=== PATIENT | female | born 1960 | race Caucasian/White ===

== ENCOUNTER → 2016-11-27 | Outpatient (CLI) | payer BC ==
[2014-05-18 11:33] VITALS: BP 128/81
--- NOTE | 2016-11-28 16:35 | MG ---
HISTORY: SCREENING Comparison: October 04, 2014 and October 15, 2015 FINDINGS: Bilateral CC and MLO projections of the right and left breast were obtained. Scattered fibroglandul ar tissue is seen to be present without significant interval change. No suspicious architectural di stortion, mass or clustered microcalcifications can be observed to suggest malignancy. No skin thic kening or nipple retraction is appreciated. No pathological lymphadenopathy can be identified. Obed ign-appearing calcifications are noted within the right and left breast. IMPRESSION: NO RADIOGRAPHIC EVIDENCE OF MALIGNANCY. ACR CATEGORY 2 - benign findings. FOLLOW-UP EXAM 1 YEAR. Diagnostic CAD was utilized and reviewed. * 0 (ZERO) - ASSESSMENT INCOMPLETE; ADDITIONAL IMAGING IS NEEDED. * 1/1 (ONE) - NEGATIVE. * 2/II (TWO) - BENIGN FINDINGS. * 3/III (THREE) - PROBABLY BENIGN FINDING; SHORT INTERVAL FOLLOW-UP SUGGESTED. * 4/IV (FOUR) - SUSPICIOUS ABNORMALITY; BIOPSY SHOULD BE CONSIDERED. * 5/V (FIVE) - HIGHLY SUSPICIOUS OF MALIGNANCY; BIOPSY SHOULD BE PERFORMED. A NEGATIVE X-RAY REPORT SHOULD NOT DELAY BIOPSY IF A DOMINANT OR CLINICALLY SUSPICIOUS MASS IS PRESENT; 4 TO 8 PERCENT OF CANCERS ARE NOT IDENTIFIED BY X-RAY. A NEG ATIVE REPORT MAY REINFORCE THE CLINICAL IMPRESSION. ADENOSIS AND DENSE BREASTS MAY OBSCURE AN UNDER LYING NEOPLASM. Reported By:
== END ==
LOC: RAD 14:52
PROVIDERS: ATTEND Internal Medicine
DX: Z12.31 Encounter for screening mammogram for malignant neoplasm of breast (principal)
CPT/HCPCS: 77067

== ENCOUNTER 2022-06-20 10:02 | Inpatient (IN) ==
[2022-06-20 10:22] LABS: BASOPHILS # (AUTO) 0.1 X10^3/uL (0.0-0.1); BASOPHILS % (AUTO) 0.6 % (0.2-1.0); EOSINOPHILS # (AUTO) 0.1 x10^3/uL (0.0-0.2); EOSINOPHILS % (AUTO) 0.3 % (0.9-2.9); HEMATOCRIT 43.2 % (36.0-47.0); HEMOGLOBIN 15.2 g/dL (12.0-16.0); LYMPHOCYTES % (AUTO) 16.1 % (21.0-51.0); MEAN CORPUSCULAR HEMOGLOBIN 29.7 pg (27.0-34.0); MEAN CORPUSCULAR HGB CONC 35.1 g/dL (33.0-35.0); MEAN CORPUSCULAR VOLUME 84.5 fL (80.0-100.0); MEAN PLATELET VOLUME 7.7 fL (7.4-11.0); MONOCYTES # (AUTO) 1.3 x10^3/uL (0.3-0.8); MONOCYTES % (AUTO) 6.7 % (0.0-13.0); NEUTROPHILS # (AUTO) 14.3 x10^3/uL (2.2-4.8); NEUTROPHILS % (AUTO) 76.3 % (42.0-75.0); RED BLOOD COUNT 5.11 X10^6/uL (3.5-5.4); RED CELL DISTRIBUTION WIDTH 16.8 % (11.6-16.5); WHITE BLOOD COUNT 18.7 X10^3/uL (3.6-10.0)
[2022-06-20 10:41] LABS: ALANINE AMINOTRANSFERASE 37 Units/L (12-78); ALBUMIN 3.7 g/dL (3.4-5.0); ALKALINE PHOSPHATASE 183 Units/L (46-116); ASPARTATE AMINO TRANSFERASE 27 Units/L (15-37); BLOOD UREA NITROGEN 25 mg/dL (7-18); CALCIUM 9.3 mg/dL (8.5-10.1); CHLORIDE 87 mmol/L (98-107); COR NA(FOR HYPERGLY) 133 mmol/L (136-145); CREATININE 1.88 mg/dL (0.55-1.02); SODIUM 130 mmol/L (136-145); TOTAL PROTEIN 8.7 g/dL (6.4-8.2); eGFR NON BLACK RACES 29 (>60)
--- NOTE | 2022-06-20 10:43 | DR.DIZZY ---
HPI Time seen Time Seen by Provider: 06/20/22 10:40 PCP Primary Care Physician: Nadira Sims Complaint Chief Complaint Doctor Comments: PATIENT HAS BEEN LOOSING HER BALANCE FOR THE PAST FEW DAYS AND HAS ABRASION ON LEFT LOWER LEG AND L FOREARM . Chief Complaint:: Dizziness - Pt fell this morning in her bathroom and once yesterday. Pt states dizziness started about 6 days ago. She has recently been started on Ozempic and believes that may be why she's dizzy. COVID-19 Coronavirus risk:travel/contact w/high risk person: No Has patient experienced Coronavirus symptoms: No Source History Provided: Patient Mode of Arrival Mode of Arrival: Ambulatory Timing Onset of Chief Complaint: 06/14/22 Context Stroke Symptoms: None PMH PMH Past Medical History: Yes Past Medical History: Diabetes, Hypertension and Renal Disease Past Medical History Comment: Breast CA, Acid Reflux Past Surgical History: Yes Surgical History: , Cholecystectomy and Hysterectomy Past Surgical History Comment: Lumpectomy (Left side), Ortho foot Family History History of Family Medical Conditions: Yes Family Medical History: Diabetes Mellitus and [place] Social History Does patient currently use any type of tobacco product: No Have you used tobacco products in the last 12 months: No Type of Tobacco Use: None Alcohol Use: None Do you use any recreational Drugs:: No Lives With: Alone Lives Where: Home Travel Risk Coronavirus risk:travel/contact w/high risk person: No Has patient experienced Coronavirus symptoms: No Infectious screening Have you traveled outside the country in the last 6 months?: No Isolation: Standard ROS Review of Systems Constitutional: Weakness, Fatigue and Other (REQUENT FALLS,HYPOKALEMIA) Eyes: Other (FREQUENT FALLS) ENTM: No Symptoms Reported Respiratoy: No Symptoms Reported Cardiovascular: No Symptoms Reported Gastrointestinal/Abdominal: No Symptoms Reported Genitourinary: No Symptoms Reported Neurological: No Symptoms Reported Musculoskeletal: Left, Forearm and Leg Integumentary: Other (BRUISE LEFT FOREARM AND LEFT LEG) Hematologic/Lymphatic: No Symptoms Reported Endocrine: No Symptoms Reported Psychiatric: No Symptoms Reported PE Vital Signs Vitals: Temperature 98.7 F Pulse Rate 104 Respiratory Rate 22 Blood Pressure [Right Arm] 115/64 Blood Pressure [Left Arm] 132/69 Blood Pressure 124/75 O2 Sat by Pulse Oximetry 100 General Limitations: No Limitations General Appearance: Alert and In Distress (MILD DISTRESS) Head Head Exam: Normal Inspection and Atraumatic Eyes Eye exam: Normal Appearance, PERRL and EOMI ENT ENT Exam: Normal Exam, Normal Oropharynx and Normal External Ear Exam Neck Neck Exam: Normal Inspection, Full ROM and Trachea Midline Chest Chest Inspection: Normal Inspection and Symmetric Chest Wall Rise Respiratory Respiratory Exam: Normal Lung Sounds Bilat Respiratory Exam: Bilateral: Clear to Auscultation Cardiovascular Cardiovascular Exam: Regular Rate and Normal Rhythm Abdominal Exam Abdominal Exam: Normal Inspection, Normal Bowel Sounds and Soft Rectal Rectal Exam: Deferred Extremeties Extremities Exam: Other (ABRASIONS TO LEFT FOREAARM AND LEFT LOWER LEG) Neurologic Neurological Exam: Alert, Oriented X3 and CN II-XII Intact Patient Oriented To: Person, Place and Time Speech: Fluid Speech Cranial Nerve Exam: EOM Function (II, III, IV, ): Normal MDM Differential Diagnosis Differential Diagnosis: Anemia, Electrolyte disorder, Peripheral Vertigo and Other (CHF) COURSE Treatment Treatment: PATINT REMAINED STABLE DURING ER EVALUATION. WAS FOUND TO HAVE K OF 2.2 AND WAS STARTED ON ONE 10MEQ K-RIDER IN ER . THE REST OF THE LAB EVALUATION SHOWED A WBC OF 18.7. THE URINE WAS NEGATIVER ND I DID NOT SEE AN OBVIOUS INFILTRATE ON THE CHEST XRAY. PATIENT WILL BE GIVEN ROCEPHINE 1GRAM IN ER FOR LEUCOCYTOSIS AND DR JACKSON CALLED AND HE STATED TO ADMIT THE PATIENT TO THE HOSPITAL AND TREAT HYPOKALEMIA AND LEUCOCYTOSIS. PATIENT WAS TOLD ABOUT THE INTENT TO ADMIT AND WAS AGREABLE TO THE ADMISSION. ROR Labs Reviewed Laboratory Results Reviewed?: Yes Result Diagrams: 06/20/22 10:11 06/20/22 10:11 Laboratory: WBC 18.7 X10^3/uL (3.6-10.0) H 06/20/22 10:11 RBC 5.11 X10^6/uL (3.5-5.4) 06/20/22 10:11 Hgb 15.2 g/dL (12.0-16.0) 06/20/22 10:11 Hct 43.2 % (36.0-47.0) 06/20/22 10:11 MCV 84.5 fL (80.0-100.0) 06/20/22 10:11 MCH 29.7 pg (27.0-34.0) 06/20/22 10:11 MCHC 35.1 g/dL (33.0-35.0) H 06/20/22 10:11 RDW 16.8 % (11.6-16.5) H 06/20/22 10:11 Plt Count 515 X10^3/uL (150.0-450.0) H 06/20/22 10:11 MPV 7.7 fL (7.4-11.0) 06/20/22 10:11 Neut % (Auto) 76.3 % (42.0-75.0) H 06/20/22 10:11 Lymph % (Auto) 16.1 % (21.0-51.0) L 06/20/22 10:11 [place] % (Auto) 6.7 % (0.0-13.0) 06/20/22 10:11 Eos % (Auto) 0.3 % (0.9-2.9) L 06/20/22 10:11 Baso % (Auto) 0.6 % (0.2-1.0) 06/20/22 10:11 Neut # (Auto) 14.3 x10^3/uL (2.2-4.8) H 06/20/22 10:11 Lymph # (Auto) 3.0 X10^3/uL (1.3-2.9) H 06/20/22 10:11 [place] # (Auto) 1.3 x10^3/uL (0.3-0.8) H 06/20/22 10:11 Eos # (Auto) 0.1 x10^3/uL (0.0-0.2) 06/20/22 10:11 Baso # (Auto) 0.1 X10^3/uL (0.0-0.1) 06/20/22 10:11 Absolute Nucleated RBC 0.1 /100WBC 06/20/22 10:11 Sodium 130 mmol/L (136-145) L 06/20/22 10:11 Corrected Sodium 133 mmol/L (136-145) L 06/20/22 10:11 Potassium 2.2 mmol/L (3.5-5.1) L* 06/20/22 10:11 Chloride 87 mmol/L (98-107) L 06/20/22 10:11 Carbon Dioxide 27.0 mmol/L (21-32) 10/14/22 10:11 BUN 25 mg/dL (7-18) H 06/20/22 10:11 Creatinine 1.88 mg/dL (0.55-1.02) H 06/20/22 10:11 Est GFR (MDRD) Af Amer 35 (>60) L 06/20/22 10:11 Est GFR (MDRD) Non-Af 29 (>60) L 06/20/22 10:11 Glucose 240 mg/dL (65-99) H 06/20/22 10:11 Calcium 9.3 mg/dL (8.5-10.1) 06/20/22 10:11 Corrected Calcium TNP 06/20/22 10:11 Total Bilirubin 0.60 mg/dL (0.2-1.0) 06/20/22 10:11 AST 27 Units/L (15-37) 06/20/22 10:11 ALT 37 Units/L (12-78) 06/20/22 10:11 Alkaline Phosphatase 183 Units/L (46-116) H 06/20/22 10:11 Troponin I High Sens 16.4 ng/L (4.0-60.0) 06/20/22 10:11 B-Natriuretic Peptide 99.4 pg/mL (0-79) H 06/20/22 10:11 Total Protein 8.7 g/dL (6.4-8.2) H 06/20/22 10:11 Albumin 3.7 g/dL (3.4-5.0) 06/20/22 10:11 Globulin 5.0 g/dL (2.5-4.5) H 06/20/22 10:11 Albumin/Globulin Ratio 0.7 Ratio (1.1-2.1) L 06/20/22 10:11 Specimen Type Clean catch urine 06/20/22 10:55 Urine Color Straw (YELLOW) 06/20/22 10:55 Urine Appearance Clear (CLEAR) 06/20/22 10:55 Urine pH 6.0 (5.0 - 8.0) 06/20/22 10:55 Ur Specific [place] 1.020 (1.000-1.030) 06/20/22 10:55 Urine Protein 3+ (NEGATIVE) 06/20/22 10:55 Urine Glucose (UA) Negative (NEGATIVE) 06/20/22 10:55 Urine Ketones Negative (NEGATIVE) 06/20/22 10:55 Urine Blood 1+ (NEGATIVE) 06/20/22 10:55 Urine Nitrite Negative (NEGATIVE) 06/20/22 10:55 Urine Bilirubin Negative (NEGATIVE) 06/20/22 10:55 Urine Urobilinogen Normal (NORMAL) 06/20/22 10:55 Ur Leukocyte Esterase Negative (NEGATIVE) 06/20/22 10:55 Urine RBC 0-2 /HPF (0-3) 06/20/22 10:55 Urine WBC 0-2 /HPF (0-5) 06/20/22 10:55 Ur Squamous Epith Cells Few /HPF (NEGATIVE) 06/20/22 10:55 Urine Bacteria Trace /HPF (NEGATIVE) 06/20/22 10:55 Hyaline Casts Moderate /LPF (NEGATIVE) 06/20/22 10:55 Urine Mucus Few /HPF (NEGATIVE) 06/20/22 10:55 Ur Culture Indicated? No/not indicated 06/20/22 10:55 XRAY XRAY Interpreted by: Self (NO INFILTRATE NOTED) EKG Rhythm: NSR Opioid Opioid Risk Tool Age (Adolfo box if 16-45): No History of Preadolescent Sexual Abuse: No Total: 0 Total Score Risk Category: Low Risk Copyright: Cb BERNARD predicting aberrant behaviors Discharge Plan Diagnosis Discharge Problem: Hypokalemia, Leucocytosis, Hyperglycemia Discharge Plan Patient Disposition: 09 ADMITTED INPATIENT Condition: Stable Prescriptions: No Action cyclobenzaprine 10 mg tablet 1 tab PO BID furosemide 40 mg tablet 1 tab PO QDAY atorvastatin 20 mg tablet 1 tab PO QPM fluorouracil 5 % cream 40 applic TOPICAL QDAY pantoprazole 40 mg tablet,delayed release (DR/EC) 1 tab PO QDAY venlafaxine 37.5 mg tablet 1 tab PO BID gabapentin 300 mg capsule 1 cap PO QPM triamterene-hydrochlorothiazid 75-50 mg tablet 1 tab PO QDAY metoprolol succinate 25 mg tablet extended release 24 hr 1 tab PO QDAY letrozole 2.5 mg tablet 1 tab PO QDAY Ozempic 0.25 mg or 0.5 mg(2 mg/1.5 mL) pen injector 0.25 mg SUBCUT QWEEK Health Concerns: Post Hospitalization: new medications and changes needed to prevent readmission or further decline. Pt educated and given instructions on all concerns. Plan of Treatment: Continue with present treatment and follow up plan. Pt is to keep follow up appointment as instructed and take medications as ordered. Orders to Discharge Patient Discharge Orders: Transfer (Routine); Ordered 06/20/22 Ordered By: Juwan Marinelli Follow ups/Referrals Follow ups/Referrals: NADIRA SIMS [Primary Care Provider] - 3 days Instructions Stand Alone Forms: Precautions for COVID19, [place], Patient Portal, So cial Distancing
[2022-06-20] MEDS ORDERED: K-RIDER 10 MEQ/NS 100 ML 10 MEQ/100 ML BAG IV ONE ×2 (11:05→11:12)
[2022-06-20 11:09] LABS: BILIRUBIN,URINE NEGATIVE (NEGATIVE); BLOOD/HEMOGLOBIN,URINE 1+ (NEGATIVE); GLUCOSE, URINE NEGATIVE (NEGATIVE); KETONES,URINE NEGATIVE (NEGATIVE); LEUKOCYTE ESTERASE ,URINE NEGATIVE (NEGATIVE); NITRITES,URINE NEGATIVE (NEGATIVE); PROTEIN,URINE 3+ (NEGATIVE); UROBILINOGEN,URINE NORMAL (NORMAL)
[2022-06-20] MEDS ORDERED: NS 1,000 ML IV 1,000 ML ONE (11:12)
[2022-06-20] MEDS: NS 1,000 ML IV 1,000 ML IV SCH (11:29)
[2022-06-20 11:55] LABS: APPEARANCE,URINE CLEAR (CLEAR); COLOR,URINE STRAW (YELLOW)
[2022-06-20 11:56] LABS: BACTERIA,URINE TRACE /HPF (NEGATIVE); HYALINE CASTS, URINE MODERATE /LPF (NEGATIVE); RBC,URINE 0-2 /HPF (0-3); SQUAMOUS EPITHELIAL CELL,UR FEW /HPF (NEGATIVE)
[2022-06-20] MEDS ORDERED: ROCEPHIN VIAL 1 GRAM IV ONE (12:55)
[2022-06-20] MEDS ORDERED: ROCEPHIN 1 GRAM IV PREMIX 1 G/50 ML IV.SOLN. IV SCH (13:13)
[2022-06-20] MEDS ORDERED: ROCEPHIN VIAL 1 GRAM ONE (13:26)
[2022-06-20] MEDS ORDERED: ROCEPHIN VIAL 1 GRAM 1 G in NS 100 ML IV 100 ML IV SCH (13:30)
[2022-06-20] MEDS ORDERED: KLOR-CON PO PRN ×2 (13:40→15:35)
[2022-06-20] MEDS ORDERED: MICRO K EXTEN CAP 10 MEQ PO PRN ×2 (13:40→15:35)
[2022-06-20] MEDS ORDERED: POTASSIUM CHL 40 MEQ/NS 0.45% 500 ML IV PRN ×2 (13:40→15:35)
[2022-06-20] MEDS ORDERED: POTASSIUM CHL 60 MEQ/NS 0.45% 500 ML IV PRN ×2 (13:40→15:35)
[2022-06-20] MEDS ORDERED: K-DUR TAB 20 MEQ PO PRN (13:40)
[2022-06-20] MEDS ORDERED: POTASSIUM CHLORIDE LIQ 20 MEQ UDC PO PRN ×2 (13:40→15:35)
[2022-06-20] MEDS ORDERED: K-RIDER 10 MEQ/NS 100 ML 10 MEQ/100 ML BAG IV PRN ×2 (13:40→15:35)
[2022-06-20 14:53] VITALS: BMI 26.6
[2022-06-20] MEDS ORDERED: MAXZIDE 75/50 MG PO SCH (15:06)
[2022-06-20] MEDS ORDERED: PATIENT'S HOME MEDICATION (Semaglutide [Ozempic] 0.25 mg or 0.5 mg(2 mg/1.5 mL) pen inject SUBCUT SCH (15:06)
[2022-06-20] MEDS ORDERED: MAGNESIUM SULFATE 1 GRAM/100 mL PREMIX 1 G/100 ML BAG IV PRN (15:35)
--- NOTE | 2022-06-20 16:00 | RAD ---
HISTORYDizziness, fallSTUDYChest AP [id number]/02/2022FINDINGSHear t size is normal. Ca are normal. Lung pittman are clear. No pleural effusions are identified. Bony thorax is unremarkable.IMPRESSIONNo significant abnormality identifiedElectronically signed by: LUCIO VILLELA (Jun 20, 2022 15:58:19)
[2022-06-20] MEDS: PROTONIX TAB 40 MG PO SCH (17:27)
[2022-06-20] MEDS: TOPROL XL PO SCH (17:27)
[2022-06-20] MEDS: MAXZIDE 37.5/25 MG PO SCH (17:27)
[2022-06-20] MEDS: LIPITOR TAB 20 MG PO SCH (21:35)
[2022-06-20] MEDS: EFFEXOR TAB 37.5 MG (BID DOSING) PO SCH (21:35)
[2022-06-20] MEDS: FLEXERIL TAB 10 MG PO SCH (21:35)
[2022-06-20] MEDS: NEURONTIN CAP 300 MG PO SCH (21:35)
[2022-06-20] MEDS: ZOSYN VIAL 3.375 GRAMS 3.375 G in NS 100 ML IV 100 ML IV SCH (21:36)
[2022-06-21] MEDS: K-DUR TAB 20 MEQ PO PRN ×3 (01:50→14:51)
[2022-06-21] MEDS: NS 1,000 ML IV 1,000 ML IV SCH ×2 (01:58→17:47)
[2022-06-21] MEDS: ZOSYN VIAL 3.375 GRAMS 3.375 G in NS 100 ML IV 100 ML IV SCH ×3 (05:03→21:16)
[2022-06-21 05:59] LABS: BASOPHILS # (AUTO) 0.1 X10^3/uL (0.0-0.1); BASOPHILS % (AUTO) 0.6 % (0.2-1.0); EOSINOPHILS # (AUTO) 0.1 x10^3/uL (0.0-0.2); EOSINOPHILS % (AUTO) 0.7 % (0.9-2.9); HEMATOCRIT 37.3 % (36.0-47.0); HEMOGLOBIN 13.1 g/dL (12.0-16.0); LYMPHOCYTES # (AUTO) 3.1 X10^3/uL (1.3-2.9); LYMPHOCYTES % (AUTO) 22.4 % (21.0-51.0); MEAN CORPUSCULAR HEMOGLOBIN 29.8 pg (27.0-34.0); MEAN CORPUSCULAR HGB CONC 35.2 g/dL (33.0-35.0); MEAN CORPUSCULAR VOLUME 84.6 fL (80.0-100.0); MEAN PLATELET VOLUME 7.3 fL (7.4-11.0); MONOCYTES % (AUTO) 7.5 % (0.0-13.0); NEUTROPHILS # (AUTO) 9.5 x10^3/uL (2.2-4.8); NEUTROPHILS % (AUTO) 68.8 % (42.0-75.0); RED CELL DISTRIBUTION WIDTH 16.6 % (11.6-16.5); WHITE BLOOD COUNT 13.8 X10^3/uL (3.6-10.0)
[2022-06-21 06:07] LABS: ALANINE AMINOTRANSFERASE 28 Units/L (12-78); ALKALINE PHOSPHATASE 153 Units/L (46-116); ASPARTATE AMINO TRANSFERASE 22 Units/L (15-37); BLOOD UREA NITROGEN 18 mg/dL (7-18); CALCIUM 8.6 mg/dL (8.5-10.1); CARBON DIOXIDE 29.3 mmol/L (21-32); CHLORIDE 95 mmol/L (98-107); COR CA(FOR HYPOALB) 9.4 mg/dL (8.5-10.1); COR NA(FOR HYPERGLY) 135 mmol/L (136-145); CREATININE 1.06 mg/dL (0.55-1.02); SODIUM 134 mmol/L (136-145); TOTAL PROTEIN 7.3 g/dL (6.4-8.2); eGFR NON BLACK RACES 56 (>60)
[2022-06-21] MEDS: FLEXERIL TAB 10 MG PO SCH ×2 (08:15→20:44)
[2022-06-21] MEDS: EFFEXOR TAB 37.5 MG (BID DOSING) PO SCH ×2 (08:16→20:44)
[2022-06-21] MEDS: TOPROL XL PO SCH (08:16)
[2022-06-21] MEDS: PROTONIX TAB 40 MG PO SCH (08:16)
[2022-06-21] MEDS: MAXZIDE 37.5/25 MG PO SCH (08:16)
--- NOTE | 2022-06-21 11:36 | DR.H&P ---
H&P - History & Physical for Day of: H&P Date: 06/20/22 - Chief Complaint Chief Complaint: DIZZINESS, WEAKNESS, FREQUENT FALLS, LEFT ARM WOUND, LEFT LOWER LEG WOUND - History of Present Illness History of Present Illness: IS A 62 YEAR OLD PATIENT OF OURS. SHE PRESENTED TO THE ER WITH COMPLAINTS OF DIZZINESS AND FREQUENT FALLS. PATIENT REPORTED FALLING IN HER BATHROOM ON THE DAY OF ADMISSION AND ALSO ONE TIME THE PREVIOUS DAY. SHE REPORTS THAT DIZZINESS STARTED APPROXIMATELY ONE WEEK AGO. SHE WAS RECENTLY STARTED ON OZEMPIC AND BELIEVES THAT IS WHAT MAY BE CAUSING THE DIZZINESS. ON EXAMINATION, PATIENT WAS NOTED TO HAVE A LARGE SKIN TEAR TO THE LEFT ARM WELL THE LEFT KNEE. BLOODY DRAINAGE WAS NOTED TO THE ARM. ERYTHEMA NOTED TO ARM AND LEFT LOWER LEG. HER PMH INCLUDES: HTN, GERD, COLOECTOMY, ARTHRITIS, CHOLECYSTECTOMY, , AND HYSTERECTOMY. ON ARRIVAL TO THE HOSPITAL, VITALS WERE: 98.3-828-29-100%-129/70. LABS WERE OBTAINED. WBC 18.7, RBC 5.11, HGB 15.2, HCT 43.2, PLT COUNT 515, SODIUM 130, POTASSIUM 2.2, CHLORIDE 87, BUN 25, CREATININE 1.88, GLUCOSE 240, CALCIUM 9.3, AST 27, ALT 37, ALK PHOS 183, BNP 99.4, TOTAL PROTEIN 8.7, ALBUMIN 3.7. A URINALYSIS WAS OBTAINED AND WAS UNREMARKABLE. CHEST XRAY OBTAINED AND REVEALED: NO SIGNIFICANT ABNORMALITY IDENTIFIED. EKG REVEALED: SINUS TACHYCARDIA WITH HR 106. IN THE ER, SHE WAS GIVEN A 10MEQ K-RIDER AND ROCEPHIN 1G IV X 1. SHE WAS ADMITTED TO THE HOSPITAL FOR FURTHER EVALUATION AND TREATMENT OF CELLULITIS OF LEFT LOWER LEG AND LEFT ARM, LEUKOCYTOSIS, DEHYDRATION, HYPONATREMIA, AND HYPOKALEMIA. SHE WAS STARTED ON NORMAL SALINE AT 80 ML/HR, ZOSYN 3.375G IV TID, THE POTASSIUM AND MAGNESIUM PROTOCOLS. HER HOME MEDICATIONS OF LIPITOR, FLEXERIL, NEURONTIN, METOPROLOL, PROTONIX, AND VENLAFAXINE WERE RESUMED. WE WILL CONSULT FOR POSSIBLE DEBRIDEMENT OF LEFT ARM WOUND. OTHERWISE, WE WILL FOLLOW-UP WITH AM LABS AND CONTINUE TO MONITOR. TIME SPENT ON CLINICAL ASSESSMENT, REVIWING LABS AND IMAGING, DECISION MAKING, AND DOCUMENTATION GREATER THAN 75 MINUTES. - Past Medical History Past Medical History: Hypertension, Diabetes, Renal Disease - Past Surgical History Surgical History: Cholecystectomy, , Hysterectomy - Family History Family Medical History: Diabetes Mellitus, [place] - Social History Does patient currently use any type of tobacco product: No Have you used tobacco products in the last 12 months: No Type of Tobacco Use: None Does any household member use tobacco: No Alcohol Use: None Drug Use: None - Medications Home Medications: droperidol [From Inapsine] Allergy (Verified 02/06/22 15:51) sulfamethoxazole [From Bactrim] Allergy (Verified 02/06/22 15:51) trimethoprim [From Bactrim] Allergy (Verified 02/06/22 15:51) CONTINUE taking the following medications atorvastatin 20 mg tablet 1 tab PO QPM 06/20/22 [History] cyclobenzaprine 10 mg tablet 1 tab PO BID 06/20/22 [History] fluorouracil 5 % topical cream 40 applic topical QDAY 06/20/22 [History] furosemide 40 mg tablet 1 tab PO QDAY 06/20/22 [History] gabapentin 300 mg capsule 1 cap PO QPM 06/20/22 [History] letrozole 2.5 mg tablet 1 tab PO QDAY 06/20/22 [History] metoprolol succinate 25 mg tablet,extended release 24 hr 1 tab PO QDAY 06/20/22 [History] pantoprazole 40 mg tablet,delayed release 1 tab PO QDAY 06/20/22 [History] semaglutide 0.25 mg or 0.5 mg (2 mg/1.5 mL) subcutaneous pen injector (Ozempic) 0.25 mg subcut QWEEK 06/20/22 [History] triamterene 75 mg-hydrochlorothiazide 50 mg tablet 1 tab PO QDAY 06/20/22 [History] venlafaxine 37.5 mg tablet 1 tab PO BID 06/20/22 [History] - Review of Systems Constitutional: Weakness Eyes: No Symptoms Reported ENT: No Symptoms Reported Respiratory: No Symptoms Reported Cardiovascular: [place] Gastrointestinal: No Symptoms Reported Genitourinary: No Symptoms Reported Musculoskeletal: No Symptoms Reported Skin: Wound (LEFT ARM SKIN TEAR, LEFT KNEE SKIN TEAR ) Neurological: Weakness - Physical Exam Vital Signs: Temperature 98.1 F Pulse Rate [Left] 92 Pulse Rate 104 Respiratory Rate 18 Blood Pressure [Right Arm] 126/68 Blood Pressure [Left Arm] 132/69 Blood Pressure 124/75 O2 Sat by Pulse Oximetry 97 Oriented: Normal Eyes: Normal Ear: Normal Nose: Normal Throat: Normal Respiratory: Diminished Throughout Cardiovascular: Tachycardia : Normal Auscultation: Bowel Sounds: Normal Palpation: Normal Tenderness: Normal Skin: Red, Tender, Wound (LARGE SKIN TEAR TO LEFT ARM, SKIN TEAR TO LEFT KNEE ) Musculoskeletal: Normal Psychiatric: Normal Mood Description: Calm Affect: Normal Speech Pattern: Clear - Assessment/Plan (1) Cellulitis of left leg Status: Acute Plan: ADMIT, NORMAL SALINE AT 80 ML/HR, ZOSYN 3.375G IV TID, THE POTASSIUM AND MAGNESIUM PROTOCOLS. HER HOME MEDICATIONS OF LIPITOR, FLEXERIL, NEURONTIN, METOPROLOL, PROTONIX, AND VENLAFAXINE WERE RESUMED. (2) Cellulitis of left arm Status: Acute (3) Skin tear of left upper extremity Status: Acute Plan: SURGICAL CONSULT (4) Dehydration Status: Acute (5) Hyponatremia Status: Acute (6) Hypokalemia Status: Acute (7) Generalized weakness Status: Acute - Allergies Allergies/Adverse Reactions: Allergies Allergy/AdvReac Type Severity Reaction Status Date / Time droperidol [From Inapsine] Allergy Verified 02/06/22 15:51 sulfamethoxazole Allergy Verified 02/06/22 15:51 [From Bactrim] trimethoprim [From Bactrim] Allergy Verified 02/06/22 15:51
[2022-06-21] MEDS: LIPITOR TAB 20 MG PO SCH (20:44)
[2022-06-21] MEDS: NEURONTIN CAP 300 MG PO SCH (20:45)
[2022-06-21] MEDS: TYLENOL 325 MG TAB PO PRN (20:45)
[2022-06-22] MEDS: NS 1,000 ML IV 1,000 ML IV SCH ×4 (03:28→20:38)
[2022-06-22] MEDS: ZOSYN VIAL 3.375 GRAMS 3.375 G in NS 100 ML IV 100 ML IV SCH ×3 (05:14→21:21)
[2022-06-22 05:29] LABS: BASOPHILS % (AUTO) 0.6 % (0.2-1.0); EOSINOPHILS # (AUTO) 0.1 x10^3/uL (0.0-0.2); EOSINOPHILS % (AUTO) 1.4 % (0.9-2.9); HEMATOCRIT 32.8 % (36.0-47.0); HEMOGLOBIN 11.4 g/dL (12.0-16.0); LYMPHOCYTES # (AUTO) 1.8 X10^3/uL (1.3-2.9); LYMPHOCYTES % (AUTO) 22.6 % (21.0-51.0); MEAN CORPUSCULAR HEMOGLOBIN 29.9 pg (27.0-34.0); MEAN CORPUSCULAR HGB CONC 34.9 g/dL (33.0-35.0); MEAN CORPUSCULAR VOLUME 85.7 fL (80.0-100.0); MEAN PLATELET VOLUME 7.2 fL (7.4-11.0); MONOCYTES # (AUTO) 0.5 x10^3/uL (0.3-0.8); MONOCYTES % (AUTO) 6.6 % (0.0-13.0); NEUTROPHILS # (AUTO) 5.6 x10^3/uL (2.2-4.8); NEUTROPHILS % (AUTO) 68.8 % (42.0-75.0); RED BLOOD COUNT 3.82 X10^6/uL (3.5-5.4); RED CELL DISTRIBUTION WIDTH 16.6 % (11.6-16.5); WHITE BLOOD COUNT 8.1 X10^3/uL (3.6-10.0)
[2022-06-22 05:49] LABS: ALANINE AMINOTRANSFERASE 24 Units/L (12-78); ALBUMIN 2.7 g/dL (3.4-5.0); ALKALINE PHOSPHATASE 135 Units/L (46-116); ASPARTATE AMINO TRANSFERASE 16 Units/L (15-37); BLOOD UREA NITROGEN 12 mg/dL (7-18); CALCIUM 8.2 mg/dL (8.5-10.1); CARBON DIOXIDE 25.6 mmol/L (21-32); CHLORIDE 104 mmol/L (98-107); COR CA(FOR HYPOALB) 9.2 mg/dL (8.5-10.1); COR NA(FOR HYPERGLY) 138 mmol/L (136-145); CREATININE 0.96 mg/dL (0.55-1.02); SODIUM 138 mmol/L (136-145); TOTAL PROTEIN 6.6 g/dL (6.4-8.2); eGFR NON BLACK RACES > 60 (>60)
[2022-06-22] MEDS: K-DUR TAB 20 MEQ PO PRN ×3 (06:23→16:17)
[2022-06-22] MEDS: TYLENOL 325 MG TAB PO PRN ×3 (08:09→20:34)
[2022-06-22] MEDS: FLEXERIL TAB 10 MG PO SCH ×2 (08:10→20:35)
[2022-06-22] MEDS: PROTONIX TAB 40 MG PO SCH (08:10)
[2022-06-22] MEDS: EFFEXOR TAB 37.5 MG (BID DOSING) PO SCH ×2 (08:10→20:35)
[2022-06-22] MEDS: TOPROL XL PO SCH (08:10)
[2022-06-22] MEDS: NEURONTIN CAP 300 MG PO SCH (20:35)
[2022-06-22] MEDS: LIPITOR TAB 20 MG PO SCH (20:35)
[2022-06-23 05:14] LABS: BASOPHILS # (AUTO) 0.1 X10^3/uL (0.0-0.1); BASOPHILS % (AUTO) 0.7 % (0.2-1.0); EOSINOPHILS # (AUTO) 0.2 x10^3/uL (0.0-0.2); EOSINOPHILS % (AUTO) 2.2 % (0.9-2.9); HEMATOCRIT 31.9 % (36.0-47.0); LYMPHOCYTES # (AUTO) 1.6 X10^3/uL (1.3-2.9); LYMPHOCYTES % (AUTO) 23.7 % (21.0-51.0); MEAN CORPUSCULAR HGB CONC 34.6 g/dL (33.0-35.0); MEAN CORPUSCULAR VOLUME 86.6 fL (80.0-100.0); MEAN PLATELET VOLUME 6.9 fL (7.4-11.0); MONOCYTES # (AUTO) 0.4 x10^3/uL (0.3-0.8); MONOCYTES % (AUTO) 5.7 % (0.0-13.0); NEUTROPHILS # (AUTO) 4.6 x10^3/uL (2.2-4.8); NEUTROPHILS % (AUTO) 67.7 % (42.0-75.0); RED BLOOD COUNT 3.69 X10^6/uL (3.5-5.4); RED CELL DISTRIBUTION WIDTH 17.3 % (11.6-16.5); WHITE BLOOD COUNT 6.8 X10^3/uL (3.6-10.0)
[2022-06-23] MEDS: ZOSYN VIAL 3.375 GRAMS 3.375 G in NS 100 ML IV 100 ML IV SCH (05:28)
[2022-06-23 05:35] LABS: ALANINE AMINOTRANSFERASE 26 Units/L (12-78); ALBUMIN 2.3 g/dL (3.4-5.0); ALKALINE PHOSPHATASE 135 Units/L (46-116); ASPARTATE AMINO TRANSFERASE 16 Units/L (15-37); BLOOD UREA NITROGEN 11 mg/dL (7-18); CALCIUM 7.8 mg/dL (8.5-10.1); CARBON DIOXIDE 24.4 mmol/L (21-32); CHLORIDE 110 mmol/L (98-107); COR CA(FOR HYPOALB) 9.2 mg/dL (8.5-10.1); COR NA(FOR HYPERGLY) 141 mmol/L (136-145); CREATININE 0.91 mg/dL (0.55-1.02); MAGNESIUM 1.9 mg/dL (1.7-2.9); SODIUM 140 mmol/L (136-145); TOTAL PROTEIN 5.9 g/dL (6.4-8.2); eGFR NON BLACK RACES > 60 (>60)
[2022-06-23] MEDS: K-DUR TAB 20 MEQ PO PRN (05:54)
[2022-06-23] MEDS: FLEXERIL TAB 10 MG PO SCH (09:41)
[2022-06-23] MEDS: EFFEXOR TAB 37.5 MG (BID DOSING) PO SCH (09:41)
[2022-06-23] MEDS: PROTONIX TAB 40 MG PO SCH (09:41)
[2022-06-23] MEDS: TOPROL XL PO SCH (09:42)
[2022-06-23] MEDS: NS 1,000 ML IV 1,000 ML IV SCH (10:00)
[2022-06-23 11:17] VITALS: BP 138/67
--- NOTE | 2022-06-25 11:17 | PCM.PROG ---
Progress Note - Progress Note for Day of Date of Exam: 06/22/22 - Subjective Subjective: WAS ADMITTED TO THE HOSPITAL INPATIENT STATUS FOR TREATMENT OF CELLULITIS OF LEFT LEG, CELLULITIS OF LEFT ARM, LARGE SKIN TEAR TO THE LEFT UPPER EXTREMITY, DEHYDRATION, HYPONATREMIA, HYPOKALEMIA, AND GENERALIZED WEAKNESS. TODAY, SHE IS ALERT AND ORIENTED, LYING IN BED ON MORNING ROUNDS. SHE CONTINUES WITH ERYTHEMA TO THE LEFT ARM AND LEG. THERE DOES APPEAR TO BE SLIGHT IMPROVEMENT SINCE STARTING ANTIBIOTICS. WE CONSULTED YESTERDAY FOR WOUND CARE AND HE GAVE ORDERS FOR DRESSING TYPE AND INSTRUCTIONS. WE HAVE BEEN TREATING HER POTASSIUM, HOWEVER, IT REMAINS LOW. HER VITALS THIS MORNING ARE: 97.6-102-18-98%-120/61. LABS WERE OBTAINED. WBC 8.1, RBC 3.82, HGB 11.4, HCT 32.8, SODIUM 138, POTASSIUM 3.0, CHLORIDE 104, BUN 12, CREATININE 0.96, GLUCOSE 115, AST 16, ALT 24, ALK PHOS 135, TOTAL PROTEIN 6.6, ALBUMIN 2.7. AFTER RECEIVING K-DUR 60MEQ X 1 DOSE, POTASSIUM ONLY INCREASED TO 3.3. SHE WAS GIVEN AN ADDITIONAL DOSE OF K-DUR 40MEQ PO X 1. SHE IS CURRENTLY RECEIVING NORMAL SALINE AT 80 ML/HR, ZOSYN 3.375G IV TID, THE POTASSIUM AND MAGNESIUM PROTOCOLS. HER HOME MEDICATIONS OF LIPITOR, FLEXERIL, NEURONTIN, METOPROLOL, PROTONIX, AND VENLAFAXINE WERE RESUMED. WE WILL CONTINUE WITH CURRENT PLAN OF CARE TODAY. OTHERWISE, WE PLAN TO FOLLOW-UP WITH AM LABS AND CONTINUE TO MONITOR. TIME SPENT ON CLINICAL ASSESSMENT, REVIWING LABS AND IMAGING, DECISION MAKING, AND DOCUMENTATION GREATER THAN 45 MINUTES. - Past Medical Family Social History Past Med/Fam/Surg Hx: No changes since H&P Allergies: Allergies droperidol [From Inapsine] Allergy (Verified 02/06/22 15:51) sulfamethoxazole [From Bactrim] Allergy (Verified 02/06/22 15:51) trimethoprim [From Bactrim] Allergy (Verified 02/06/22 15:51) - Review of Systems ROS: No change since H&P - Vital Signs and I&O's Vital Signs: Temperature 98.1 F Pulse Rate [Left] 103 Pulse Rate 104 Respiratory Rate 18 Blood Pressure [Right Arm] 138/67 Blood Pressure [Left Arm] 132/69 Blood Pressure 124/75 O2 Sat by Pulse Oximetry 99 Intake and Output: Intake & Output 06/22/22 06/23/22 06/24/22 06/25/22 11:59 11:59 11:59 11:59 Intake Total 2525 Balance 2525 - Physical Exam Oriented: Normal Eyes: Normal Ear: Normal Nose: Normal Throat: Normal Respiratory: Generalized, Diminished Cardiovascular: Tachycardia : Normal Auscultation: Bowel Sounds: Normal Palpation: Normal Tenderness: Normal Skin: Red, Tender, Wound (LARGE SKIN TEAR TO LEFT ARM, SKIN TEAR TO LEFT KNEE ) Musculoskeletal: Normal Psychiatric: Normal Mood Description: Calm Affect: Normal Speech Pattern: Clear, Appropriate - Laboratory and Diagnostics Result Diagrams: 06/23/22 04:50 06/23/22 04:50 Labs: Laboratory WBC 6.8 X10^3/uL (3.6-10.0) 06/23/22 04:50 RBC 3.69 X10^6/uL (3.5-5.4) 06/23/22 04:50 Hgb 11.0 g/dL (12.0-16.0) L 06/23/22 04:50 Hct 31.9 % (36.0-47.0) L 06/23/22 04:50 MCV 86.6 fL (80.0-100.0) 06/23/22 04:50 MCH 30.0 pg (27.0-34.0) 06/23/22 04:50 MCHC 34.6 g/dL (33.0-35.0) 06/23/22 04:50 RDW 17.3 % (11.6-16.5) H 06/23/22 04:50 Plt Count 328 X10^3/uL (150.0-450.0) 06/23/22 04:50 MPV 6.9 fL (7.4-11.0) L 06/23/22 04:50 Neut % (Auto) 67.7 % (42.0-75.0) 06/23/22 04:50 Lymph % (Auto) 23.7 % (21.0-51.0) 06/23/22 04:50 [place] % (Auto) 5.7 % (0.0-13.0) 06/23/22 04:50 Eos % (Auto) 2.2 % (0.9-2.9) 06/23/22 04:50 Baso % (Auto) 0.7 % (0.2-1.0) 06/23/22 04:50 Neut # (Auto) 4.6 x10^3/uL (2.2-4.8) 06/23/22 04:50 Lymph # (Auto) 1.6 X10^3/uL (1.3-2.9) 06/23/22 04:50 [place] # (Auto) 0.4 x10^3/uL (0.3-0.8) 06/23/22 04:50 Eos # (Auto) 0.2 x10^3/uL (0.0-0.2) 06/23/22 04:50 Baso # (Auto) 0.1 X10^3/uL (0.0-0.1) 06/23/22 04:50 Absolute Nucleated RBC 0.0 /100WBC 06/23/22 04:50 Sodium 140 mmol/L (136-145) 06/23/22 04:50 Corrected Sodium 141 mmol/L (136-145) 06/23/22 04:50 Potassium 3.7 mmol/L (3.5-5.1) 06/23/22 04:50 Chloride 110 mmol/L (98-107) H 06/23/22 04:50 Carbon Dioxide 24.4 mmol/L (21-32) 06/23/22 04:50 BUN 11 mg/dL (7-18) 06/23/22 04:50 Creatinine 0.91 mg/dL (0.55-1.02) 06/23/22 04:50 Est GFR (MDRD) Af Amer > 60 (>60) 06/23/22 04:50 Est GFR (MDRD) Non-Af > 60 (>60) 06/23/22 04:50 Glucose 150 mg/dL (65-99) H 06/23/22 04:50 POC Glucose (mg/dL) 137 mg/dL (65-99) H 06/23/22 05:32 Calcium 7.8 mg/dL (8.5-10.1) L 06/23/22 04:50 Corrected Calcium 9.2 mg/dL (8.5-10.1) 06/23/22 04:50 Magnesium 1.9 mg/dL (1.7-2.9) 06/23/22 04:50 Total Bilirubin 0.20 mg/dL (0.2-1.0) 06/23/22 04:50 AST 16 Units/L (15-37) 06/23/22 04:50 ALT 26 Units/L (12-78) 06/23/22 04:50 Alkaline Phosphatase 135 Units/L (46-116) H 06/23/22 04:50 Troponin I High Sens 16.4 ng/L (4.0-60.0) 06/20/22 10:11 B-Natriuretic Peptide 99.4 pg/mL (0-79) H 06/20/22 10:11 Total Protein 5.9 g/dL (6.4-8.2) L 06/23/22 04:50 Albumin 2.3 g/dL (3.4-5.0) L 06/23/22 04:50 Globulin 3.6 g/dL (2.5-4.5) 06/23/22 04:50 Albumin/Globulin Ratio 0.6 Ratio (1.1-2.1) L 06/23/22 04:50 Specimen Type Clean catch urine 06/20/22 10:55 Urine Color Straw (YELLOW) 06/20/22 10:55 Urine Appearance Clear (CLEAR) 06/20/22 10:55 Urine pH 6.0 (5.0 - 8.0) 06/20/22 10:55 Ur Specific [place] 1.020 (1.000-1.030) 06/20/22 10:55 Urine Protein 3+ (NEGATIVE) 06/20/22 10:55 Urine Glucose (UA) Negative (NEGATIVE) 06/20/22 10:55 Urine Ketones Negative (NEGATIVE) 06/20/22 10:55 Urine Blood 1+ (NEGATIVE) 06/20/22 10:55 Urine Nitrite Negative (NEGATIVE) 06/20/22 10:55 Urine Bilirubin Negative (NEGATIVE) 06/20/22 10:55 Urine Urobilinogen Normal (NORMAL) 06/20/22 10:55 Ur Leukocyte Esterase Negative (NEGATIVE) 06/20/22 10:55 Urine RBC 0-2 /HPF (0-3) 06/20/22 10:55 Urine WBC 0-2 /HPF (0-5) 06/20/22 10:55 Ur Squamous Epith Cells Few /HPF (NEGATIVE) 06/20/22 10:55 Urine Bacteria Trace /HPF (NEGATIVE) 06/20/22 10:55 Hyaline Casts Moderate /LPF (NEGATIVE) 06/20/22 10:55 Urine Mucus Few /HPF (NEGATIVE) 06/20/22 10:55 Ur Culture Indicated? No/not indicated 06/20/22 10:55 - Plan (1) Cellulitis of left leg Status: Acute Plan: NORMAL SALINE AT 80 ML/HR, ZOSYN 3.375G IV TID, THE POTASSIUM AND MAGNESIUM PROTOCOLS. HER HOME MEDICATIONS OF LIPITOR, FLEXERIL, NEURONTIN, METOPROLOL, PROTONIX, AND VENLAFAXINE WERE RESUMED. (2) Cellulitis of left arm Status: Acute (3) Skin tear of left upper extremity Status: Acute Plan: SURGICAL CONSULT (4) Dehydration Status: Acute (5) Hyponatremia Status: Acute (6) Hypokalemia Status: Acute (7) Generalized weakness Status: Acute
== END 2022-06-23 11:35 | disposition home or self-care (01) | DRG 603 ==
LOC: ER 10:02 → MED/SURG 13:04
PROVIDERS: ADMIT Internal Medicine; ATTEND Internal Medicine
DX: R29.6 Repeated falls; R42 Dizziness and giddiness; S81.012A Laceration without foreign body, left knee, initial encounter; R53.1 Weakness; L03.114 Cellulitis of left upper limb; S41.112A Laceration without foreign body of left upper arm, initial encounter; E11.65 Type 2 diabetes mellitus with hyperglycemia; R94.31 Abnormal electrocardiogram [ECG] [EKG]; I10 Essential (primary) hypertension; K21.9 Gastro-esophageal reflux disease without esophagitis; L03.116 Cellulitis of left lower limb; E87.1 Hypo-osmolality and hyponatremia; E86.0 Dehydration; W18.39XA Other fall on same level, initial encounter; E87.6 Hypokalemia